=== PATIENT | female | born 1945 | race Caucasian/White ===

== ENCOUNTER → 2020-04-05 | Outpatient (CLI) | payer MEDICARE ==
[~2020-04-05] MED LIST: LEVO100T5 PO
== END | disposition home or self-care (01) ==
LOC: CFH 11:25
PROVIDERS: ATTEND Family Medicine
DX: M81.0 Age-related osteoporosis without current pathological fracture (principal); N95.9 Unspecified menopausal and perimenopausal disorder
CPT/HCPCS: 77080

== ENCOUNTER → 2020-05-31 | Outpatient (CLI) | payer MEDICARE ==
[~2020-05-31] MED LIST changes: +ALEN70TA77 PO; +ASCO100018 PO; +CALC500T93 PO; +GINK120T3 PO; +GLUC1CAP40 PO
== END | disposition home or self-care (01) ==
LOC: STAR 12:59
PROVIDERS: ATTEND Internal Medicine
DX: Z01.812 Encounter for preprocedural laboratory examination (principal); Z20.822 Contact with and (suspected) exposure to COVID-19
CPT/HCPCS: 93005; U0003

== ENCOUNTER 2020-06-05 10:21 | Day surgery (SDC) | payer MEDICARE ==
[~2020-06-05] VITALS: Ht 162.6 cm; Wt 55.5 kg
[2020-06-05] MEDS ORDERED: AMOXICILLIN PO (10:48)
[2020-06-05 10:50] VITALS: BP 110/76
[2020-06-05] MEDS ORDERED: LACTATED RINGERS 1,000 ML IV SCH (11:00)
[2020-06-05] MEDS ORDERED: CHLORHEXIDINE 15 ML UDC MM ONE (11:00)
[2020-06-05] MEDS ORDERED: CHLORHEXIDINE 15 ML UDC ONE (11:03)
[2020-06-05] MEDS ORDERED: PHENYLEPHRINE 10 MG/ML ONE (11:22)
[2020-06-05] MEDS ORDERED: PROPOFOL 10 MG/ML, 20ML ONE ×4 (12:01)
[2020-06-05] MEDS ORDERED: PROPOFOL 50 ML ONE (12:04)
== END 2020-06-05 14:40 | disposition home or self-care (01) ==
LOC: OUT 10:21
PROVIDERS: ATTEND Internal Medicine
DX: D12.2 Benign neoplasm of ascending colon (principal); D12.3 Benign neoplasm of transverse colon; E03.9 Hypothyroidism, unspecified; Z79.890 Hormone replacement therapy; Z79.899 Other long term (current) drug therapy; Z96.641 Presence of right artificial hip joint
CPT/HCPCS: 45380; 45381; 45385; 88305; A4648; J2370; J2704; J7120